=== PATIENT | female | born 1990 | race African-American/Black ===

== ENCOUNTER 2024-03-30 13:03 | Outpatient (CLI) | payer OTHER, SELFPAY ==
--- NOTE | ~2024-03-30 | US_ITS ---
EXAMINATION: US thyroid DATE: 03/30/2024 13:36 INDICATION: Thyroid nodule. TECHNIQUE: Multiple ultrasound images of the thyroid were obtained. COMPARISON: None. FINDINGS: The right thyroid lobe measures 6.8 x 1.9 x 2.6 cm. The left thyroid lobe measures 6.2 x 1.8 x 2.5 c m. The thyroid is diffusely heterogeneous and hypoechoic with increased vascularity. In the thyroid isthmus, there are 10 mm and 11 mm solid, very hypoechoic, wider than tall nodule with smooth margin without echogenic foci (TI-RADS TR4). IMPRESSION: 1. Heterogeneous, hypervascular thyroid, consistent with chronic lymphocytic (Gabi's) thyroiditi s. 2. Thyroid nodules. Thyroid ultrasound is recommended in one year. Reviewed, dictated and finalized at location A. IMPRESSION: 1. Heterogeneous, hypervascular thyroid, consistent with chronic lymphocytic (H ashimoto's) thyroiditis. 2. Thyroid nodules. Thyroid ultrasound is recommended in one year.
[2024-03-30 14:26] LABS: Alanine Aminotransferase 11 U/L (6-35); Albumin Level 4.4 g/dL (3.5-5.1); Alkaline Phosphatase 76 U/L (38-126); Anion Gap 11 mmol/L (4-12); Aspartate Amino Transferase 21 U/L (14-36); Bilirubin,Total 0.3 mg/dL (0.2-1.3); Blood Urea Nitrogen 10 mg/dL (7-17); Calcium 8.9 mg/dL (8.4-10.2); Carbon Dioxide 25 mmol/L (22-30); Chloride 101 mmol/L (98-107); Estimated Glomerular Filt Rate > 60; Glucose 108 mg/dL (65-110); Potassium 3.5 mmol/L (3.4-5.0); Sodium 137 mmol/L (137-145)
[2024-03-30 14:38] LABS: Hematocrit 39.7 % (37.0-47.0); Hemoglobin 13.4 g/dL (12.0-15.0); Mean Corpuscular HGB Conc 33.8 g/dl (32-36); Mean Corpuscular Hemoglobin 29.8 pg (26-34); Mean Corpuscular Volume 88.4 fl (80-100); Mean Platelet Volume 10.3 fl (7.4-10.4); Platelet Count Result 273 k/mm3 (150-375); Red Blood Count 4.49 M/mm3 (4.2-5.4); Red Cell Distribution Width 13.7 % (11.5-14.5); White Blood Count 6.1 K/mm3 (4.5-10.0)
[2024-03-30 14:44] LABS: Free T4 Free Thyroxine 1.09 ng/mL (0.78-2.19)
[2024-03-30 14:58] LABS: Thyroid Stimulating Hormone < 0.015 uIU/mL (0.465-4.680); Total Triiodothyronine (T3) 1.25 NG/ML (0.97-1.69)
[2024-04-06 14:48] LABS: Thyrotropin Receptor Antibody 1.25 IU/L (< OR = 2.00)
[2024-04-06 19:13] LABS: Thyroid Stimulating Immunoglob <89 % baseline (<140)
[2024-04-07 12:33] LABS: Thyroid Peroxidase Antibodies >900 IU/mL (<9)
== END 2024-03-30 13:04 | disposition home or self-care (01) ==
LOC: ANHIMG 13:07
PROVIDERS: Visit Provider Internal Medicine
DX: E04.2 Nontoxic multinodular goiter (principal)
CPT/HCPCS: 36415; 76536; 80053; 83519; 84439; 84443; 84445; 84480; 85027; 86376

== ENCOUNTER 2024-04-13 13:44 | Outpatient (CLI) | payer OTHER, SELFPAY ==
--- NOTE | ~2024-04-13 | NM_ITS ---
EXAMINATION: NM thyroid scan w uptake DATE: 04/14/2024 14:18 INDICATION: Assess for toxic thyroid nodules COMPARISON: 03/30/2024 TECHNIQUE: 284 microcuries I-[id number] was administered orally in capsule form. Scintigraphic images of th e thyroid gland were obtained at 24 hours. Thyroid uptake was calculated by the technologist. FINDINGS: The thyroid uptake is 31% (normal 10-30%), with the right lobe measuring 18% uptake and the left 13%. There is no focal area of decreased or increased activity to suggest hypofunctioning or hyperfunctio luis armando nodule. IMPRESSION: 1. Normal thyroid scintigraphy with diffuse mildly increased 24-hour iodine uptake which could be se en with Graves' disease. Reviewed, dictated and finalized at location B. IMPRESSION: 1. Normal thyroid scintigraphy with diffuse mildly increased 24-hour iodine up take which could be seen with Graves' disease.
== END 2024-04-13 13:45 | disposition home or self-care (01) ==
PROVIDERS: Visit Provider Internal Medicine
DX: E04.1 Nontoxic single thyroid nodule (principal); E05.90 Thyrotoxicosis, unspecified without thyrotoxic crisis or storm
CPT/HCPCS: 78014; A9516

== ENCOUNTER 2024-07-13 10:38 | Outpatient (CLI) | payer OTHER, SELFPAY ==
[2024-07-13 11:36] LABS: Free T4 Free Thyroxine 1.09 ng/dL (0.78-2.19)
[2024-07-13 12:18] LABS: Thyroid Stimulating Hormone 0.614 uIU/mL (0.465-4.680); Total Triiodothyronine (T3) 1.16 NG/ML (0.97-1.69)
== END 2024-07-13 10:39 | disposition home or self-care (01) ==
LOC: ANHLAB 10:40
PROVIDERS: Visit Provider Internal Medicine
DX: E04.1 Nontoxic single thyroid nodule (principal); E05.90 Thyrotoxicosis, unspecified without thyrotoxic crisis or storm
CPT/HCPCS: 36415; 84439; 84443; 84480

== ENCOUNTER 2024-07-23 16:36 | Outpatient (CLI) | payer OTHER, SELFPAY ==
--- NOTE | ~2024-07-23 | US_ITS ---
EXAMINATION: US thyroid DATE: 07/23/2024 17:18 INDICATION: Thyroid nodule. TECHNIQUE: Multiple ultrasound images of the thyroid were obtained. COMPARISON: Ultrasound 03/30/2024 FINDINGS: The right thyroid lobe measures 5.9 x 1.8 x 2.6 cm. The left thyroid lobe measures 6.2 x 2.2 x 2.2 c m. The thyroid is diffusely heterogeneous in echogenicity with increased vascularity. In the thyroid isthmus, there is a 9 mm solid, hypoechoic, wider than tall nodule with smooth margin without echoge marian foci (TI-RADS TR4). IMPRESSION: 1. Heterogeneous, hypervascular thyroid, consistent with chronic lymphocytic (Gabi) thyroiditis. 2. Small thyroid nodule, likely not clinically significant. No follow-up is needed. Reviewed, dictated and finalized at location A. 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 Heterogeneous, hypervascular thyroid, consistent with chronic lymphocytic (H ashimoto) thyroiditis. 2. Small thyroid nodule, likely not clinically significant. No follow-up is nee ded.
== END 2024-07-23 16:37 | disposition home or self-care (01) ==
LOC: ANHIMG 16:38
PROVIDERS: Visit Provider Internal Medicine
DX: E05.90 Thyrotoxicosis, unspecified without thyrotoxic crisis or storm (principal); E04.1 Nontoxic single thyroid nodule
CPT/HCPCS: 76536

== ENCOUNTER 2025-01-06 11:54 | Outpatient (CLI) | payer OTHER, SELFPAY ==
[2025-01-06 12:33] LABS: Alanine Aminotransferase 10 U/L (6-35); Albumin Level 4.1 g/dL (3.5-5.1); Alkaline Phosphatase 64 U/L (38-126); Anion Gap 7 mmol/L (4-12); Aspartate Amino Transferase 21 U/L (14-36); Bilirubin,Total 0.3 mg/dL (0.2-1.3); Blood Urea Nitrogen 12 mg/dL (7-17); Calcium 9.1 mg/dL (8.4-10.2); Carbon Dioxide 27 mmol/L (22-30); Chloride 105 mmol/L (98-107); Estimated Glomerular Filt Rate > 60; Glucose 107 mg/dL (65-110); Potassium 3.6 mmol/L (3.4-5.0); Sodium 139 mmol/L (137-145); Total Protein 7.2 g/dL (6.3-8.2)
--- OUTSIDE RECORDS SUMMARY | 2025-01-06 12:45 | XMS_ITS | Clinical Summary ---
Author Organization [facility] [email or web address] Address [address] [place] [address] Care Team Providers Care Material Attendant Name Role Phone Monique Newman MD Primary Care Provider [phone] Source Comments [facility],non-owned Affiliates and Associated Physician Practices is amultiple site organization consisting of ambulatory clinics and hospital sitesin [place], [place], [place]. This disclosure is being madepursuant to the Care Everywhere program and may not contain all information available regarding this patient. Last updated 18.[facility] [email or web address] Allergies Active Allergy Reactions Criticality Noted Date Comments Amoxicillin Shortness of Breath High 05/24/2015 Medications * Be aware that medications may not be up to date on this document. Alwaysverify current medications with the patient. albuterol (PROVENTIL;VENT STARLA) (2.5 MG/3ML) 0.083% nebulizer solution Inhale by mouth 4 times daily as needed for Shortness of Breath or Wheezing Active cyclobenzaprine (FLEXERIL) 10 MG tablet Take 10 mg by mouth once daily 0 9 Active gabapentin (NEURONTIN) 100 MG capsule Take 100 mg by mouth once daily 0 9 Active meloxicam (MOBIC) 15 MG tablet Take 15 mg by mouth once daily 0 9 Active acetaminophen-c odeine (TYLENOL #3) 300-30 MG tablet Take 1 tablet by mouth once daily 0 9 Active ibuprofen (MOTRIN) 600 MG tablet Take 600 mg by mouth every 6 hours as needed Active cetirizine (ZYRTEC) 5 MG chew tablet Take 5 mg by mouth once daily Active Active Problems Problem Noted Date Diagnosed Date Keloid 06/19/2021 Rash and other nonspecific skin eruption 021 Hypertensive disorder 12/04/2018 Hyperthyroidism 12/04/2018 Family History Medical History Relation Name Comments Asthma Brother None Known Father None Known Maternal Aunt None Known Maternal Grandfather None Known Maternal Grandmother None Known Maternal Uncle Arthritis - Rheumatoid Mother Asthma Mother Hypertension Mother None Known Other None Known Paternal Aunt None Known Paternal Grandfather None Known Paternal Grandmother None Known Paternal Uncle Arthritis - Rheumatoid Sister CVA Neg Hx Cancer - Breast Neg Hx Cancer - Other Neg Hx Cancer - Skin, Melanoma Neg Hx Cancer - Skin, Non Melanoma Neg Hx Eczema Neg Hx Hemophilia Neg Hx Psoriasis Neg Hx Relation Name Status Comments Brother Father Maternal Aunt Maternal Grandfather Maternal Grandmother Maternal Uncle Mother Other Paternal Aunt Paternal Grandfather Paternal Grandmother Paternal Uncle Sister Social History Tobacco Use Types Packs/Day Years Used Date Smoking Tobacco: Never Smokeless Tobacco: Never Alcohol Use Standard Drinks/Week Comments No 0 (1 standard drink = 0.6 oz pur e alcohol) Comments No Sex and Gender Information Value Date Recorded Sex Assigned at Not on file 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 Gender Identity Not on file Sexual Orientation Not on file Last Filed Vital Signs Vital Sign Reading Time Taken Comments Blood Pressure 128/53 01/18/2019 6:00 AM CDT Pulse 81 01/17/2019 10:02 PM CDT Temperature 36.6 C (97.9 F) 01/17/2019 10:02 PM CDT Respiratory Rate 16 01/17/2019 10:02 PM CDT Oxygen Saturation 98% 01/18/2019 6:08 AM CDT Inhaled Oxygen Concentration - - Weight 108.4 kg (239 lb) 03/10/2019 11:25 AM CDT Height 180.3 cm (5' 11) 03/10/2019 11:25 AM CDT Body Mass Index 33.33 03/10/2019 11:25 AM CDT Plan of Treatment Health Maintenance Due Date Last Done Comments HIV SCREENING 10/29/2003 HEPATITIS C SCREENING 10/24/2006 DTAP/TDAP/TD VACCINES (1 - Tdap) 10/29/2007 HEPATITIS B VACCINE (1 of 3 - 19+ 3-dose series) 10/29/2007 COVID-19 VACCINE (1 - 2023-2 5 season) 2024 DEPRESSION SCREENING 08/04/2024 INFLUENZA VACCINE (Season Ended) 2025 ZOSTER VACCINE (1 of 2) 2038 HIB VACCINE Aged Out No longer eligi ble based on patient's age to complete this topic HPV VACCINE Aged Out No longer eligi ble based on patient's age to complete this topic MENINGOCOCCAL (Group B) VACC INE SHARED DECISION-MAKING Aged Out No longer eligibl e based on patient's age to complete this topic MENINGOCOCCAL GROUPS A/C/Y/W VACCINE Aged Out No longer eligible b ased on patient's age to complete this topic PNEUMOCOCCAL VACCINE Aged Out No long er eligible based on patient's age to complete this topic Insurance [facility] [employer] Care Teams Material Attendant Relationship Specialty Start Date End Date Monique Newman MD [address] [place] [id number] PCP - General 06/16/21
--- OUTSIDE RECORDS SUMMARY | 2025-01-06 12:45 | XMS_ITS | Encounter Summary ---
Author Organization [facility] Address [facility] [facility] [place] [address] Care Team Providers Care Export Administrator Name Role Phone Gateano Alarcon MD Primary Care Provider [phone] Monique Newman MD Primary Care Provider [phone] Reason for Visit * Reason Onset Date Comments Care Management Other 04/03/2021 Encounter Details Date Type Department Care Team (Late st Contact Info) Description 04/03/2021 Telephone [facility] [place] [address] Jen Hicks DO [address] [place] [address] Care Management Other Social History Tobacco Use Types Packs/Day Years Used Date Smoking Tobacco: Never Smokeless Tobacco: Never Alcohol Use Standard Drinks/Week Comments No 0 (1 standard drink = 0.6 oz pur e alcohol) Comments No Sex and Gender Information Value Date Recorded Sex Assigned at Not on file 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 Please call pt to advise/discuss. Pt phone [phone]. documented in this encounter Plan of Treatment Not on file documented as of this encounter Visit Diagnoses Not on filedocumented in this encounter Care Teams Export Administrator Relationship Specialty Start Date End Date Gaetano Alarcon MD PCP - General 03/10/19 06/15/21 Monique Newman MD [address] [place] [address] PCP - General 06/16/21 documented as of this encounter
--- OUTSIDE RECORDS SUMMARY | 2025-01-06 12:46 | XMS_ITS | Referral Summary ---
Author Organization [facility] Address [address] [place] [address] Care Team Providers Care Chisel Trimmer Name Role Phone Pricila Ramirez MD Primary Care Provider [phone] Allergies Active Allergy Reactions Criticality Noted Date Comments Amoxicillin Shortness of breath High 05/24/2015 Breathing Difficulty Medications diphenhydrAMINE (diphenhydrAMIN E) 25 mg capsule Take 1 tablet/capsul e (25 mg total) by mouth every 6 (six) hours as needed for itching 20 capsule 03/08/2022 Active cetirizine (ZyrTEC) 10 mg tablet Take 1 tablet (10 mg total) by mouth daily 30 tablet 03/08/2022 Active lidocaine (LIDODERM) 5 % Place 1 patch on the skin daily Remove & discard patch within 12 hours or as directed by . 30 patch 04/14/2022 Active cyclobenzaprine (FLEXERIL) 10 mg tablet Take 1 tablet (10 mg total) by mouth 3 (three) times a day as needed for muscle spasms 30 tablet 10/02/2023 Active naproxen (NAPROSYN) 500 mg tablet Take 1 tablet (500 mg total) by mouth 2 (two) times a day with meals 60 tablet 10/02/2023 Active Social History Tobacco Use Types Packs/Day Years Used Date Smoking Tobacco: Never Tobacco Cessation:Counseling Given: Not Answered Personal Safety Answer Date Recorded Getting School Help Needed Not on file 04/24 Comments No Sex and Gender Information Value Date Recorded Sex Assigned at Not on file Legal Sex Female 5:33 PM INTRANET DEVELOPER Gender Identity Female 08/03/2021 10:06 AM INTRANET DEVELOPER Sexual Orientation Straight 08/03/2021 10 :06 AM INTRANET DEVELOPER Last Filed Vital Signs Vital Sign Reading Time Taken Comments Blood Pressure 119/64 10/02/2023 5:30 AM INTRANET DEVELOPER Pulse 76 10/02/2023 5:30 AM INTRANET DEVELOPER Temperature 36.9 C (98.4 F) 10/02/2023 3:50 AM INTRANET DEVELOPER Respiratory Rate 18 10/02/2023 5:30 AM INTRANET DEVELOPER Oxygen Saturation 100% 10/02/2023 4:00 AM INTRANET DEVELOPER Inhaled Oxygen Concentration - - Weight 133 kg (293 lb 3.4 oz) 10/01/2023 11:43 P M INTRANET DEVELOPER Height 180.3 cm (5' 11) 04/10/2023 4:19 PM CDT Body Mass Index 40.89 04/10/2023 4:19 PM CDT Plan of Treatment Not on file Insurance [facility] Care Teams Chisel Trimmer Relationship Specialty Start Date End Date Pricila Ramirez MD PCP - General 08/30/20
--- OUTSIDE RECORDS SUMMARY | 2025-01-06 12:46 | XMS_ITS | Clinical Summary ---
Author Organization [facility] [place] Address [address] [place] [address] Care Team Providers Care Student Ambassador Name Role Phone Pricila Ramirez MD Primary Care Provider [phone] Allergies Active Allergy Reactions Criticality Noted Date [...] day with meals 60 tablet 10/02/2023 Active Medical History Medical History Date Comments Asthma Thyroid disease Social History Tobacco Use Types Packs/Day Years Used Date Smoking Tobacco: Never Tobacco Cessation:Counseling Given: Not Answered Personal Safety Answer Date Recorded Getting School Help Needed Not on file 04/24 Comments No Sex and Gender Information Value Date Recorded Sex Assigned at Not on file Legal Sex Female 5:33 PM 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 Gender Identity Female 08/03/2021 10:06 AM 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 Sexual Orientation Straight 08/03/2021 10 :06 AM 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 Obstetrics History Last Filed Vital Signs Vital Sign Reading Time Taken Comments Blood Pressure 119/64 10/02/2023 5:30 AM 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 Pulse 76 10/02/2023 5:30 AM 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 Temperature 36.9 C (98.4 F) 10/02/2023 3:50 AM 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 Respiratory Rate 18 10/02/2023 5:30 AM 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 Oxygen Saturation 100% 10/02/2023 4:00 AM 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 Inhaled Oxygen Concentration - - Weight 133 kg (293 lb 3.4 oz) 10/01/2023 11:43 P M 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 Height 180.3 cm (5' 11) 04/10/2023 4:19 PM CDT Body Mass Index 40.89 04/10/2023 4:19 PM CDT Plan of Treatment Health Maintenance Due Date Last Done Comments Cervical Cancer Screening 1988 Depression Screening 1988 Hepatitis C Screening 1988 Regular Well Visit/Exam 18-64 2006 HPV Vaccines (3 - 3-dose series) 04/10/2014 12/10/2013, 10/08/2013 Influenza Vaccine (Season Ended) 2025 DTaP/Tdap/Td Vaccine (8 - Td or Tdap) 09/09/2026 09/09/2016, 05/02/2015, 10/09/1993, Additional history exists Hepatitis B Screening Completed 05/27/2000 , 05/03/1999, 03/15/1997 Varicella Vaccines Completed 03/04/2018, 01/09/2018 Pneumococcal vaccine <65 Aged Out No longer eligible based on patient's age to complete this topic Insurance [facility] [address] [place] [address] [facility] Care Teams Student Ambassador Relationship Specialty Start Date End Date Pricila Ramirez MD PCP - General 08/30/20
[2025-01-06 13:11] LABS: Thyroid Stimulating Hormone 0.668 uIU/mL (0.465-4.680); Total Triiodothyronine (T3) 1.18 NG/ML (0.82-1.58)
[2025-01-06 13:35] LABS: Free T4 Free Thyroxine 1.26 ng/dL (0.78-2.19)
[2025-01-10 12:49] LABS: Thyroid Peroxidase Antibodies >900 IU/mL (<9)
[2025-01-11 19:48] LABS: Thyroid Stimulating Immunoglob 207 % baseline (<140)
== END 2025-01-06 11:55 | disposition home or self-care (01) ==
LOC: ANHLAB 11:54
PROVIDERS: Visit Provider Internal Medicine
DX: E04.9 Nontoxic goiter, unspecified (principal); E04.1 Nontoxic single thyroid nodule; E05.90 Thyrotoxicosis, unspecified without thyrotoxic crisis or storm; J45.909 Unspecified asthma, uncomplicated
CPT/HCPCS: 36415; 80053; 83519; 84439; 84443; 84445; 84480

== ENCOUNTER 2025-06-08 10:49 | Outpatient (CLI) | payer OTHER, SELFPAY ==
--- NOTE | ~2025-06-08 | US_ITS ---
US thyroid INDICATION: Nontoxic goiter TECHNIQUE: Real-time sonographic images of the thyroid gland were obtained. COMPARISON: Ultrasound dated 07/23/2024 FINDINGS: The right thyroid lobe measures 6.5 x 2.3 x 2.8 cm. The left thyroid lobe measures 5.5 x 1.8 x 2.9 cm. There is heterogeneous echotexture and echogenicity throughout the thyroid gland. In the isthmus there is a hypoechoic solid wider than tall mass measuring 11 x 6 x 4 mm with smooth margins and no echogenic foci, stable. Normal vascular flow is present. IMPRESSION: 1. Stable heterogeneous thyroid gland. No significant change to likely benign 11 mm mass involving the isthmus, TR 4. Follow-up ultrasound in 12 months recommended. Reviewed, dictated and finalized at location O. DRIVER IMPRESSION: 1. Stable heterogeneous thyroid gland. No significant change to likely benign 11 mm mass involving the isthmus, TR 4. Follow-up ultrasound in 12 months recom mended.
--- OUTSIDE RECORDS SUMMARY | 2025-06-09 10:26 | XMS_ITS | Clinical Summary ---
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 Gender Identity Female 08/03/2021 10:06 AM MACHINE SPRING FORMER Sexual Orientation Straight 08/03/2021 10 :06 AM MACHINE SPRING FORMER Last Filed Vital Signs Vital Sign Reading Time Taken Comments Blood Pressure 119/64 10/02/2023 5:30 AM MACHINE SPRING FORMER Pulse 76 10/02/2023 5:30 AM MACHINE SPRING FORMER Temperature 36.9 C (98.4 F) 10/02/2023 3:50 AM MACHINE SPRING FORMER Respiratory Rate 18 10/02/2023 5:30 AM MACHINE SPRING FORMER Oxygen Saturation 100% 10/02/2023 4:00 AM MACHINE SPRING FORMER Inhaled Oxygen Concentration - - Weight 133 kg (293 lb 3.4 oz) 10/01/2023 11:43 P M MACHINE SPRING FORMER Height 180.3 cm (5' 11) 04/10/2023 4:19 PM CDT Body Mass Index 40.89 04/10/2023 4:19 PM CDT Plan of Treatment Health Maintenance Due Date Last Done Comments Cervical Cancer Screening 1988 Depression Screening 1988 Hepatitis C Screening 1988 Regular Well Visit/Exam 18-64 2006 HPV Vaccines (3 - 3-dose series) 04/10/2014 12/10/2013, 10/08/2013 Influenza Vaccine (#1) 2025 DTaP/Tdap/Td Vaccine (8 - Td or Tdap) 09/09/2026 09/09/2016, 05/02/2015, 10/09/1993, Additional history exists Hepatitis B Screening Completed 05/27/2000 , 05/03/1999, 03/15/1997 Varicella Vaccines Completed 03/04/2018, 01/09/2018 Pneumococcal vaccine <65 Aged Out No longer eligible based on patient's age to complete this topic Insurance [facility] Member Subscriber Plan / Payer (Ef fective 2021-Present) Name:Kaleigh Rocha Relation to Subscriber:Self Name:Kaleigh Rocha Payer ID:[id number] (NAIC) Group ID:Not on file Type:MEDICAID RISK OTHER Address: ATTN: CLAIMS DEPT [address] [place], [place] [id number] [place] [address] [facility] Care Teams Photographic Equipment Mechanic Relationship Specialty Start Date End Date Pricila Ramirez MD PCP - General 08/30/20
--- OUTSIDE RECORDS SUMMARY | 2025-06-09 10:26 | XMS_ITS | Data Portability ---
Author Organization [facility], Main Office Address [address] [place] [address] Assessment No assessment recorded. Plan of Treatment Reminders Order Date Submit Date Provider Last Modified By Organization Details Last Modified Time Details Appointments None recorded. Lab None recorded. Referral endocrinolo gy referral 2022 023 [email or web address] Francesca Sofia MD, [address],, [address], [address], 15:09:26 Procedures None recorded. Surgeries None recorded. Imaging None recorded. Medication Orders None recorded. Patient TargetsNo targets recorded. Patient InstructionsNo instructions recorded. Reason for Referral Endocrinology Referral for H yperthyroidism Referring Physician: Pricila Ramirez, Endocrinology, Encounter Date: 03/20/2023 Results Created Date Observation Date Name Description Value Unit Range Abnormal Flag Note LastModifiedBy Organization Detail LastModifiedTime 06/01/2006/01/2021 US, thyro id No observ ation record ed. MIGRATION. [facility] [address] [place], [address], 10/02/2022 05:07:21 02/08/20 22 02/07/2022 US, thyro id No observ ation record ed. [id number] [facility] [address] [place], [address], 10/02/2022 05:07:21 07/23/20 22 06/25/2022 US, head + neck, soft tissu e No observ ation record ed. [id number] [facility] (Outpatient Registration [facility]) [address] [facility], [place], [address], 10/02/2022 05:07:21 12/22/19 23 12/20/2022 US, thyro id No observ ation record ed. [facility] [address], [place], [address], 12/31/2022 10:41:17 Result Notes None recorded. Problems Name Problem SNOMED Code Status Onset Date Resolution Date Notes Provider Name and Address Organization Details Recorded Time Hyperthyroidi sm 35197936 Active 2018 Not Available [facility] 3 04:53:32 Hypertensive disorder 36996483 Active 2018 Not Available [facility] 3 04:53:32 Vitamin B12 deficiency (non anemic) 00647904 Active 2022 Melly Ferrer RMA null, [place] [facility] 3 17:25:21 Gabi thyroiditis 39009426 Active 2022 Melly Carissa, RMA null, [place] [facility] 3 17:25:42 Abdominal bloating 766802210 Active 2022 Melly Carissa RMA null, [place] [facility] 3 17:26:32 Goiter 4929438 Active 2022 Melly Carissa, RMA null, [facility] 3 17:27:04 Problem Notes None recorded. Medical Equipment None Reported. Allergies Allergen ID Allergen Name Allergen Category Reaction Reaction Severity Criticality Documentation Date Start Date Code Code System Note Provider Name and Address Organization Details Recorded Time 8797 amoxicill in medicatio n Not available Not available Not available 10/02/2022 723 RxNorm Not Available [facility] 3 05:06:39 Medications Name Sig Start Date Stop Date Status Note LastModified by Organization Details LastModified Time cyclobenzap rine 10 mg tablet TAKE 1 TABLET BY MOUTH TWICE DAILY WITH MEALS FOR 20 DAYS active Not Available Not Available No t Available promethazin e-DM 6.25 mg-15 mg/5 mL oral syrup active Not Available Not Available Not Available propylthiou racil 50 mg tablet Take 1 tablet 3 times a day by oral route before meals for 30 days. 11/03 completed Not Available Not Available Not Available cetirizine 10 mg tablet TAKE 1 TABLET BY MOUTH DAILY active Not Available Not Available No t Available azithromyci n 250 mg tablet 12/08 completed Not Available Not Available Not Available ibuprofen 800 mg tablet active Not Available Not Available Not Available fluconazole 150 mg tablet TAKE 1 TABLET BY MOUTH DIRECTED active Not Available Not Available No t Available promethazin e 6.25 mg/5 mL oral syrup 01/28 completed Not Available Not Available Not Available meloxicam 15 mg tablet TAKE 1 TABLET BY MOUTH EVERY DAY NEEDED active Not Available Not Available No t Available metronidazo le 0.75 % (37.5 mg/5 gram) vaginal gel INSERT ONE APPLICATO RFUL VAGINALLY EVERY DAY FOR 5 DAYS 06/07 completed Not Available Not Available Not Available prednisone 20 mg tablet TAKE 2 TABLETS BY MOUTH DAILY FOR 5 DAYS active Not Available Not Available No t Available promethazin e 6.25 mg-codeine 10 mg/5 mL syrup TK 5 ML PO Q 6 H PRN. 11/03 completed Not Available Not Available Not Available triamcinolo ne acetonide 0.5 % topical ointment APPLY THIN LAYER EXTERNALL Y TO THE AFFECTED AREA TWICE DAILY 12/08 completed Not Available Not Available Not Available metronidazo le 500 mg tablet TAKE 1 TABLET BY MOUTH TWICE DAILY FOR 7 DAYS active Not Available Not Available No t Available acetaminoph en 300 mg-codeine 30 mg tablet TK 1 T PO Q 6 H 06/05 completed Not Available Not Available Not Available sulfamethox azole 800 mg-trimetho prim 160 mg tablet TAKE 1 TABLET BY MOUTH TWICE DAILY 06/07 completed Not Available Not Available Not Available triamcinolo ne acetonide 0.1 % topical cream 11/03 completed Not Available Not Available Not Available Lugols 5 % oral solution Take 4 drops 3 times a day by oral route before meals for 10 days. 11/03 completed Not Available Not Available Not Available doxycycline monohydrate 100 mg capsule TK 1 C PO BID active Not Available Not Available No t Available lidocaine 5 % topical patch PLACE 1 PATCH ON THE SKIN DAILY. REMOVE AND DISCARD WITHIN 12 HOURS OR DIRECTED active Not Available Not Available No t Available methimazole 5 mg tablet TAKE 1 TABLET BY MOUTH EVERY OTHER DAY BEFORE MEALS active Not Available Not Available No t Available Banophen 25 mg capsule TAKE 1 CAPSULE BY MOUTH EVERY 6 HOURS NEEDED FOR ITCHING active Not Available Not Available No t Available montelukast 10 mg tablet TAKE 1 TABLET BY MOUTH EVERY DAY active Not Available Not Available No t Available hydroxyzine HCl 25 mg tablet TK 1 T PO HS PRF ALLERGIES active Not Available Not Available No t Available cyanocobala min (vit B-12) 1,[address] 1 tablet every day by sublingua l route in the morning for 90 days. active Not Available Not Available No t Available gabapentin 100 mg capsule TAKE 1 CAPSULE BY MOUTH TWICE DAILY BEFORE MEALS active Not Available Not Available No t Available metoprolol succinate ER 25 mg tablet,exte nded release 24 hr TK 1 T PO QD IN THE MORNING 11/03 completed Not Available Not Available Not Available ibuprofen 600 mg tablet TAKE 1 TABLET BY MOUTH THREE TIMES DAILY WITH MEALS active Not Available Not Available No t Available methimazole 10 mg tablet Take 1 tablet twice a day by oral route before meals for 30 days. 06/17 completed Not Available Not Available Not Available fluticasone propionate 50 mcg/actuati on nasal spray,suspe nsion 06/07 completed Not Available Not Available Not Available loratadine 10 mg tablet 11/03 completed Not Available Not Available Not Available naproxen 500 mg tablet active Not Available Not Available Not Available Cough Syrup DM 10 mg-100 mg/5 mL TK 10 ML PO QID active Not Available Not Available No t Available metoprolol tartrate 25 mg tablet TK 1 T PO BID 11/03 completed Not Available Not Available Not Available Banophen 50 mg capsule TAKE ONE CAPSULE BY MOUTH EVERY NIGHT AT BEDTIME active Not Available Not Available No t Available Robafen DM Cough 10 mg-100 mg/5 mL oral liquid TAKE 2 TEASPOONS FUL BY MOUTH FOUR TIMES DAILY FOR 7 DAYS 12/08 completed Not Available Not Available Not Available Vitals Date Recorded Body mass index (BMI) Body height Oxygen saturation Oxygen saturation in Arterial blood by Pulse oximetry Heart rate Body temperature Body weight Systolic And Diastolic Provider Name and Address Organization Details Last Updated DateTime 2 41.6 kg/m2 180.34 cm 95 % 95 % 70 /min 98.3 [degF] 807959. 53 g 132/84 mm[Hg] Not Available [facility] 3 04:46:47 Date Recorded Body height Body mass index (BMI) Body weight Heart rate Body temperature Systolic And Diastolic Provider Name and Address Organization Details Last Updated DateTime 3 180.34 cm 41.8 kg/m2 215340. 71 g 86 /min 97.6 [degF] 144/92 mm[Hg] Izabela Childress MA [place] [facility] [employer] [facility] 3 14:25:03 Date Recorded Body mass index (BMI) Body height Heart rate Body temperature Body weight Systolic And Diastolic Provider Name and Address Organization Details Last Updated DateTime 2 41.7 kg/m2 180.34 cm 58 /min 97.7 [degF] 407483. 12 g 142/90 mm[Hg] Not Available [facility] 3 04:46:47 Social History Question Answer Notes LastModified by Organizat ion Details LastModified Time Tobacco Smoking Status Never Smoker Not Available [facility] 10/02/2022 04:34:56 What Is Your Level Of Caffeine Consumption? None [id number] Information not available 10/02/2022 How Much Tobacco Do You Chew? None [id number] Information not available 10/02/2022 In The 14 Days Before Symptom Onset, Have You Had Close Contact With A Laboratory-confirm ed COVID-19 While That Case Was Ill? No [id number] Information not available 10/02/2022 In The 14 Days Before Symptom Onset, Have You Had Close Contact With A Person Who Is Under Investigation For COVID-19 While That Person Was Ill? No [id number] Information not available 10/02/2022 What Type Of Diet Are You Following? REGULAR [id number] Information not available 10/02/2022 Which Illicit Or Recreational Drugs Have You Used? None [id number] Information not available 10/02/2022 What Is Your Relationship Status? Single [id number] Information not available 10/02/2022 Do You Use Your Seat Belt Or Car Seat Routinely? Yes [id number] Information not available 10/02/2022 Have You Recently Traveled Abroad? No [id number] Information not available 10/02/2022 Do You Have Any Dietary Restrictions? No [id number] Information not available 10/02/2022 Sex: Female Functional Status Question Answer Note LastModified by Organizat ion Details LastModified Time Do you use any illicit or recreational drugs? No [id number] Information not available 10/02/2022 What is your level of alcohol consumption? None [id number] Information not available 10/02/2022 Do you or have you ever used smokeless tobacco? 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 Never used electronic cigarettes [id number] Information not available 10/02/2022 Mental Status None recorded. Family History Relationship Description Onset Age of this Age Resolved Age Notes LastModified by Organization Details LastModified Time Mother Arthritis [id number] Not available 10/02/2022 04:43:25 Mother Asthma [id number] Not available 10/02/2022 04:43:25 Medical History Condition Response HYPERTHYROIDISM Y HYPERTENSION Y Gynecological HistoryNo gynecological history recorded. Obstetrics History GPAL:G 0 P 0 0 0 0 Past Encounters Encounter ID Performer Location Encounter Start Date Encounter Closed Date Diagnosis/Indication Diagnosis SNOMED-CT Code Diagnosis ICD10 Code Diagnosis IMO Codes Diagnosis Note [id number] Pricila Ramirez MD [facility] [address] [facility] [address] [place] [address] 12/08/2020 00:00:00 12/08/2020 10:16:13 [id number] MD PATRICE Harrison IGRATION_ DEFAULT_1 _1 , 06/07/2021 00:00:00 06/07/2021 12:59:26 [id number] MD PATRICE Harrison IGRATION_ DEFAULT_1 _1 , 10/11/2021 00:00:00 10/11/2021 13:24:27 [id number] MD PATRICE Harriosn IGRATION_ DEFAULT_1 _1 , 02/14/2022 00:00:00 02/14/2022 13:27:40 [id number] Pricila Ramirez MD [facility] [address] [place] [address] 07/23/2022 00:00:00 07/23/2022 17:32:42 [id number] Pricila Ramirez MD [facility] [address] [place] [address] 03/20/2023 14:13:13 03/20/2023 15:09:26 Hyperthyroidism 86473981 E05.90 FT4/FT3 in ideal range- off CASTILLO for over 2 years now. Iodine levels low with enlarged thyroid gland. Recommende d a thyroid supplement similar to actalin by Dr. Dante Pelletier that contains, iodine, magnesium, manganese, carnitine and other elements to help maintain endogenous thyroid function and help to reduce swelling to take in meantime to help reduce time frame to burn out and to help with fatigue, hair thinning etc. Educated a bout weight management 894717892 Z71.3 Recommende d she adhere to at least 1200 calorie per day intake with multiple small 300-400 calorie meals (4-5 small meals per day) on sedentary days up to 1600 calories on days she is able to undergo moderate level activity at least 30-40 minutes with 20 minutes of that time at 70% of her target heart rate in order to reach total caloric output and assist in weight loss. She is motivated and willing to go to gym daily and discussed cutting out GMOs along with preservati ves and focusing on fruits, veggies, unprocesse d beans and nuts along with meats for the bulk of her diet. Recommende d [facility] protein shake/diet blanca plan implemente d with [facility] diet. Spent up to 25 minutes preparing to see the patient (eg, review of tests), obtaining and/or reviewing separately obtained history, performing a medically appropriat e examinatio n and evaluation , counseling and educating the patient, ordering medication s, tests, along with documentin g clinical informatio n in the electronic health record, independen tly interpreti ng results and communicat ing results to the patient. Patient can be followed by PCP - she/he is aware of my resignatio n and last day of May 16. If needed his/her PCP can refer patient to another endocrinol ogist in the area. All questions /concerns answered and refills necessary at visit today. Health Concerns Section Related Observation LastModified by Organization Detai ls LastModified Time None Recorded Concern Status LastModified by Organization Details LastModified Time None Recorded Advance Directives Directive None Recorded Payers Insurance Date Sequence Insurance Name Policy Number Policy Jones Covered Member ID Jones Member ID Guarantor Name 03/17/2023 1 [facility] ON OR AFTER 02/01/21 (MEDICAID REPLACEMENT - HMO) Kaleigh Rocha [id number] Kaleigh Rocha Notes Date Note Type Note Provider Name and Address Organization Details Recorded Time 03/20/2023 text/html ROS as noted in the HPI 32 yo female comes in for follow up in management of autoimmune thyroiditis, B12 def, goiter last seen in Jul at that time we continued thyroid support-patient has been off CASTILLO for 2.5 years now with dietary / supplemental modifications we continued B12 supplementation. thyroid u/s from December:7.7 cm right lobe and 7.3 cm left lobe with small 8 mm nodule unchanged We contacted patient and no complaints of swallowing or pressure (thyroid was 10 cm in past in size) labs from 02/27/23:FT4 of 1.39 ng/dLFT3 of 3.4 pg/MLiodine 41.3 ng/mL in low normal ewrkcM45/folate low 247/6.9 ng/MLglucose 96 mg/dLCr normalLFT normalTSI 3.31TPO >600 Pricila Ramirez MD [address] [facility], [facility] [address], [place], [address], [place] - [facility] [employer] 03/20/2023 15:32:09 OBGyn Episode No OBEpisode recorded.
--- OUTSIDE RECORDS SUMMARY | 2025-06-09 10:26 | XMS_ITS | Clinical Summary ---
Author Organization [facility] [employer] Address [address] [facility] [place] [address] Care Team Providers Care Network Support Name Role Phone Monique Newman MD Primary Care Provider [phone] Source Comments [facility],non-owned Affiliates and Associated Physician Practices is amultiple site organization consisting of ambulatory clinics and hospital sitesin [place], [place], [place] and [place]. This disclosure is being madepursuant to the Care Everywhere program and may not contain all information available regarding this patient. Last updated 18.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 Gender Identity Not on file Sexual Orientation [...] of 3 - 19+ 3-dose series) 10/29/2007 HPV VACCINE (1 - 3-dose SCDM series) 10/29/2015 DEPRESSION SCREENING 08/04/2024 COVID-19 VACCINE (1 - 2023-2 5 season) 2025 INFLUENZA VACCINE (#1) 2025 ZOSTER VACCINE (1 of 2) 2038 [...] patient's age to complete this topic Insurance [facility] [employer] Care Teams Network Support Relationship Specialty Start Date End Date Monique Newman MD [address] [place] [id number] PCP - General 06/16/21
--- OUTSIDE RECORDS SUMMARY | 2025-06-09 10:26 | XMS_ITS | Encounter Summary ---
Author Organization [facility] Address [facility] [facility] [place] [address] Care Team Providers Care Food Production Associate Name Role Phone Gaetano Alarcon MD Primary Care Provider [phone] Monique Newman MD Primary Care Provider [phone] Reason for Visit * Reason Onset Date Comments Care Management Other 04/03/2021 Encounter Details Date Type Department Care Team (Late st Contact Info) Description 04/03/2021 Telephone [facility] [place] [address] Jen Hicks DO [address] [place] [address] Care Management Other Social History Tobacco Use Types Packs/Day Years Used Date Smoking Tobacco: Never Smokeless Tobacco: Never Alcohol Use Standard Drinks/Week Comments No 0 (1 standard drink = 0.6 oz pur e alcohol) Comments No Sex and Gender Information Value Date Recorded Sex Assigned at Not on file 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 Please call pt to advise/discuss. Pt phone [phone]. documented in this encounter Plan of Treatment Not on file documented as of this encounter Visit Diagnoses Not on filedocumented in this encounter Care Teams Food Production Associate Relationship Specialty Start Date End Date Gaetano Alarcon MD PCP - General 03/10/19 06/15/21 Monique Newman MD [address] [place] [address] PCP - General 06/16/21 documented as of this encounter
== END 2025-06-08 10:50 | disposition home or self-care (01) ==
PROVIDERS: Visit Provider Internal Medicine
DX: E04.9 Nontoxic goiter, unspecified (principal); E41 Nutritional marasmus; E05.90 Thyrotoxicosis, unspecified without thyrotoxic crisis or storm; E04.1 Nontoxic single thyroid nodule; J45.909 Unspecified asthma, uncomplicated; R52 Pain, unspecified
CPT/HCPCS: 76536